=== PATIENT | female | born 1955 | race Caucasian/White ===

== ENCOUNTER 2016-11-25 23:30 | Emergency (ER) | payer OTHER ==
--- NOTE | ~2016-11-25 | EKG ---
PATIENT: BENEDICTO DINERO UNIT #: [id number] Ventricular Rate: 76 BPM Atrial Rate: 76 BPM P-R Interval: 148 ms QRS Duration: 82 ms Q-T Interval: 410 ms QTC Calculation(Bezet): 461 ms P Waggoner: 62 degrees Calculated R Waggoner: 40 degrees Calculated T Waggoner: 56 degrees Diagnosis Line: Normal sinus rhythm Diagnosis Line: Possible Left atrial enlargement Diagnosis Line: Borderline ECG Diagnosis Line: No previous ECGs available Diagnosis Line: Confirmed by ANNALEE DAMIAN MD ([id number]) on Diagnosis Line: 11/27/2016 11:44:35 AM INTERPRETING MD: BAO
--- NOTE | ~2016-11-25 | CR72 ---
[facility] A Service of [facility] & [facility] RADIOLOGY TEXT RESULTS PATIENT: BENEDICTO DINERO LOCATION: [facility] : 51 UNIT #: [id number] AGE: [address]: Kellen Saavedra MD SEX: F ORDER DR: [id number] [facility] [address] [place], [place] [address] [id number] MR#: [id number] Acc #: [id number] NAME: BENEDICTO DINERO : 1955 SEX: F STUDY DATE/TIME: 11/25/2016 22:44 UNIT: [facility] ROOM: STUDY DESCRIPTION: CR Chest Single View Portable Attending Physician: Kellen Saavedra M.D. Ordering Physician: Kellen Saavedra M.D. Primary Care Physician: Primary Care Physician No MEDICAL IMAGING REPORT This report is preliminary unless electronic signature is present EXAM Portable AP view of chest COMPARISON August 18, 2016. INDICATION 61-year-old female with chest pain and dyspnea intermittently for 1 week, worsening with deep breathing. FINDINGS Cardiomediastinal silhouette is within normal limits. No evidence of pneumothorax or pleural effusion. Minimal mild increased band-like opacities in both lower lobes most keeping with atelectasis. IMPRESSION Minimal increased band-like opacities in both lower lobes favoring atelectasis. Correlation to exclude signs of pneumonia recommended. No pneumothorax or pleural effusion. Dictated by... Obie Naranjo M.D. THIS IS AN ELECTRONICALLY VERIFIED REPORT Obie Naranjo M.D. at 11/28/2016 8:43 AM [place] TD: 11/26/2016 08:55 JOB #: [id number] MEDICAL IMAGING REPORT COPY
[2016-11-25 23:40] LABS: BASOPHIL# 0.1 X10e3 (0-0.3); BASOPHIL% 0.6 % (0-2.5); EOSINOPHIL# 0.1 X10e3 (0-0.7); EOSINOPHIL% 0.8 % (0.0-7.0); HEMATOCRIT 39.8 % (35.0-45.0); HEMOGLOBIN 13.3 gm/dL (12.0-16.0); LYMPHOCYTE# 2.6 X10e3 (1.0-3.5); LYMPHOCYTE% 26.1 % (17.0-45.0); MEAN CELL VOLUME 93.1 FL (83-96); MEAN CORPUSCULAR HEMOGLOBIN 31.1 PG (28-34); MEAN CORPUSCULAR HGB CONC 33.4 g/dL (30-36); MEAN PLATELET VOLUME 9.2 FL (6.5-11.5); MONOCYTE# 0.9 X10e3 (0-1.0); MONOCYTE% 9.1 % (3.0-12.0); NEUTROPHIL# 6.2 X10e3 (1.5-7.1); NEUTROPHIL% 63.4 % (40-75); PLATELET COUNT 229 X10e3 (140-420); RED BLOOD COUNT 4.27 X10e (3.90-5.30); RED CELL DISTRIBUTION WIDTH 13.3 % (11.0-15.5); WHITE BLOOD COUNT 9.8 X10e3 (4.0-10.5)
[2016-11-25 23:41] LABS: DIFF IND NO
[2016-11-25 23:53] LABS: PARTIAL THROMBOPLASTIN TIME 25.9 SECONDS (23.5-31.3)
[2016-11-25 23:57] LABS: POC - CKMB 1.6 ng/mL (0.0-7.9); POC - TROPONIN <0.05 ng/mL (<=0.05)
[2016-11-26 00:12] LABS: ALKALINE PHOSPHATASE 84 U/L (32-92); ALT (SGPT) 19 U/L (10-40); AST (SGOT) 22 U/L (10-42); BILIRUBIN, DIRECT 0.1 mg/dL (0.0-0.2); BILIRUBIN,INDIRECT 0.5 mg/dL (0.0-0.9); BILIRUBIN,TOTAL 0.6 mg/dL (0.2-2.0); BLOOD UREA NITROGEN 11 mg/dL (9-23); BUN/CREATININE RATIO 12.22; CARBON DIOXIDE 27 mmol/L (22-31); CHLORIDE 105 mmol/L (100-111); CREATININE SERUM 0.9 mg/dL (0.6-1.4); GLOM FILT RATE Estimated ABOVE60 mL/min (>60); GLUCOSE FASTING 112 mg/dL (70-110); POTASSIUM 3.9 mmol/L (3.5-5.1); PROTEIN TOTAL SERUM 7.3 g/dL (6.0-8.3); SODIUM 136 mmol/L (135-145)
[2016-11-26 00:39] LABS: INFLUENZA A NEG (NEG); INFLUENZA B NEG (NEG)
[2016-11-26 00:42] LABS: POC - CKMB 1.4 ng/mL (0.0-7.9); POC - TROPONIN <0.05 ng/mL (<=0.05)
== END 2016-11-26 01:56 | disposition home or self-care (01) ==
LOC: CED 23:30
PROVIDERS: Student in an Organized Health Care Education/Training Program
DX: J44.1 Chronic obstructive pulmonary disease with (acute) exacerbation (principal); J20.9 Acute bronchitis, unspecified
CPT/HCPCS: 36415; 71010; 80048; 80076; 82553; 84484; 85025; 85379; 85610; 85730; 87804; 93005; 99283; J2930